=== PATIENT | female | born 1935 | race Caucasian/White ===

== ENCOUNTER → 2016-08-29 | Outpatient (CLI) | payer MEDICARE, BC ==
[~2016-08-29] MED LIST: ARICEPT5 MG PO; ASPIRIN EC81 MG PO; CALCIUM600 MG PO; ESTRADIOL0.5 MG PO; FLEXERIL 10 MG10 MG PO; GLIPIZIDE XL2.5 MG PO; GLUCOTROL XL 22.5 MG PO; INVOKANA100 MG PO; INVOKANA300 MG PO; K-DUR TAB 20 M20 MEQ PO; LEVAQUIN250 MG PO; LEVOTHYROXINE75 MCG PO; LIPITOR TAB 1010 MG PO; LISINOPRIL10 MG PO; METAXALONE800 MG PO; NEURONTIN 100100 MG PO; NORVASC 5 MG TAB5 MG PO; POTASSIUM CHLO20 ME2 PO; PROTONIX 40 MG40 M1 PO; QUINAPRIL HCL5 MG PO; RANITIDINE HCL300 MG PO; TOUJEO SQ; TRENTAL 400 MG400 MG PO; TRUBIOTICS PO; TYLENOL W/CODEIN1 E1 PO; VITAMIN B12-FO1 EACH PO; VITAMIN C 500500 MG PO; VITAMIN D31000 UNIT PO; VITAMIN E400 UNI1 PO; [UNRECOGNIZED DRUG - OTHER] TOP
== END ==
LOC: EXRD 14:44
DX: M81.0 Age-related osteoporosis without current pathological fracture (principal); M51.36 Other intervertebral disc degeneration, lumbar region
CPT/HCPCS: 77080